=== PATIENT | female | born 1935 | race Caucasian/White ===

== ENCOUNTER 2020-09-03 15:40 | Inpatient (IN) | payer MEDICARE ==
[2020-09-03 19:16] LABS: BILIRUBIN NEGATIVE (NEGATIVE); BLOOD NEGATIVE Ery/uL (NEGATIVE); CLARITY CLEAR (CLEAR); COLOR YELLOW (YELLOW); GLUCOSE (U) NORMAL (NORMAL); LEUKOCYTES NEGATIVE Leu/uL (NEGATIVE); NITRITE NEGATIVE (NEGATIVE); PROTEIN NEGATIVE (NEGATIVE); UROBILINOGEN 0.2 mg/dL (0.2-1.0); pH 6.5 (5.0-9.0)
[2020-09-03 19:46] LABS: BASOPHIL 0.8 % (0-2); EOSINOPHIL 1.2 % (0-7); HCT 29.2 % (37.0-47.0); LYMPHOCYTE 33.4 % (15-48); MCH 29.7 pg (25.0-31.0); MCHC 30.8 g/dL (32.0-36.0); MCV 96.4 fL (78.0-100.0); MONOCYTE 9.9 % (0-12); NEUTROPHIL 54.2 % (41-80); NRBC 0; PLT 316 K/uL (150-400); RBC 3.03 M/uL (4.20-5.40); WBC 7.5 K/uL (4.0-10.5)
[2020-09-03 20:14] LABS: LACTIC ACID 0.9 mmol/L (0.4-1.9)
[2020-09-03 20:16] LABS: ALBUMIN 2.4 g/dL (3.4-5.0); BILIRUBIN - TOTAL 0.4 mg/dL (0.2-1.0); BUN/CREAT RATIO (CALC) 17.5 RATIO; CREATININE 1.14 mg/dL (0.51-0.95); GLOBULIN (CALCULATION) 3.2 g/dL; POTASSIUM 3.9 mmol/L (3.5-5.1); TOTAL PROTEIN 5.6 g/dL (6.4-8.2)
--- NOTE | 2020-09-04 00:15 | NUR ---
PATIENT ARRIVED TO FLOOR FROM ER. ALERT TO SELF. SON AT BEDSIDE.
[2020-09-04] MEDS ORDERED: ZOLOFT50 MG PO (00:27)
[2020-09-04] MEDS ORDERED: HYDRALAZINE25 MG PO (00:29)
[2020-09-04] MEDS ORDERED: SINGULAIR10 MG PO (00:30)
[2020-09-04] MEDS ORDERED: CALCIUM 600 +1 EA10 PO (00:32)
[2020-09-04] MEDS ORDERED: ARICEPT 5MG TABL5 MG PO (00:33)
[2020-09-04] MEDS ORDERED: CARDIZEM CD120 MG PO (00:34)
[2020-09-04] MEDS ORDERED: LASIX40 MG PO (00:34)
[2020-09-04] MEDS ORDERED: SYNTHROID50 MCG PO (00:35)
[2020-09-04] MEDS ORDERED: DETROL LA4 MG PO (00:36)
[2020-09-04] MEDS ORDERED: MAG-OXIDE 400M400 MG PO (00:37)
[2020-09-04] MEDS ORDERED: ZOCOR 20MG TABL20 MG PO (00:37)
[2020-09-04] MEDS ORDERED: UROCIT-K10 MEQ PO (00:38)
[2020-09-04] MEDS ORDERED: LOPRESSOR50 MG PO (00:38)
[2020-09-04] MEDS ORDERED: PRINIVIL20 MG PO (00:39)
[2020-09-04] MEDS ORDERED: ELIQUIS2.5 MG PO (00:39)
[2020-09-04] MEDS ORDERED: IMIPRAMINE HCL25 MG PO (00:41)
[2020-09-04] MEDS ORDERED: ATIVAN0.5 MG PO (00:42)
[2020-09-04] MEDS ORDERED: VITAMIN D250 MCG PO (00:44)
[2020-09-04] MEDS ORDERED: FOSAMAX70 MG PO (00:46)
[2020-09-04 06:26] LABS: AMPHETAMINES NEGATIVE (NEGATIVE); BARBITURATES NEGATIVE (NEGATIVE); ECSTASY (MDMA) NEGATIVE (NEGATIVE); MARIJUANA (THC) NEGATIVE (NEGATIVE); METHADONE NEGATIVE (NEGATIVE); OPIATES NEGATIVE (NEGATIVE); OXYCODONE NEGATIVE (NEGATIVE)
[2020-09-04 06:28] LABS: BASOPHIL 0.7 % (0-2); EOSINOPHIL 0.3 % (0-7); HCT 30.1 % (37.0-47.0); HGB 9.2 g/dl (12.5-16.0); LYMPHOCYTE 28.2 % (15-48); MCH 30.3 pg (25.0-31.0); MCHC 30.6 g/dL (32.0-36.0); MONOCYTE 7.5 % (0-12); MPV 9.1 fL (6.0-9.5); NEUTROPHIL 62.2 % (41-80); PLT 350 K/uL (150-400); RBC 3.04 M/uL (4.20-5.40); WBC 7.2 K/uL (4.0-10.5)
[2020-09-04 06:41] LABS: IRON % SATURATION 16.4 %SAT (20-50)
[2020-09-04 06:47] LABS: ALBUMIN 2.5 g/dL (3.4-5.0); BAND 2 % (0-10); BILIRUBIN - TOTAL 0.5 mg/dL (0.2-1.0); BUN/CREAT RATIO (CALC) 18.7 RATIO; CREATININE 1.07 mg/dL (0.51-0.95); GLOBULIN (CALCULATION) 3.2 g/dL; LYMPHOCYTE(M) 15 % (15-48); MONOCYTE(M) 4 % (0-12); NEUTROPHILS(M) 79 % (41-80); POTASSIUM 4.2 mmol/L (3.5-5.1); TOTAL CELL COUNT 100; TOTAL PROTEIN 5.7 g/dL (6.4-8.2)
[2020-09-04 06:48] LABS: NRBC 0; PLATELET ESTIMATE NORMAL; PLATELET MORPHOLOGY NORMAL
--- NOTE | 2020-09-04 12:56 | NUR ---
WAS COMPLETING LEADER ROUNDS, WAS CONCERNED ABOUT PATIENTS METAL STATUS, PATIENT WAS FIXATED, WOULD NOT RESPOND VERBALLY, WOULD NOT FOLLOW ANY COMMANDS, HAD "FOAM/DROOL" COMING FROM MOUTH. I SPOKE WITH DR VANG IN PERSON, HE CAME TO THE BEDSIDE. REPORTED THAT PATIENT HAD SHOWN SLIGHT DECLINE FROM EARLIER IN THE SHIFT. REPORTED TO GRACE, PRIMARY RN. GRACE REPORTED THAT PATIENT HAD NOT RESPONDED VERBALLY TO HER ALL SHIFT. DR VANG ORDERED MRI PREVIOUSLY, I ASKED HIM IF HE WANTED PATIENT TO GO TO MRI, HE SAID YES AND REPORTED TO PUT PATIENT ON TELEMETRY. PATIENTS VITAL SIGNS PRIOR TO LEAVING THE FLOOR WERE: BP 183/98, HR 114, O2 99%, RR 22, TEMP 102.3. DR VANG AWARE OF VITALS. I AM GOING TO TRAVEL TO MRI WITH PATIENT FOR MONITORING.
--- NOTE | 2020-09-04 13:00 | NUR ---
PATIENT IN MRI AT 1244. VITALS AT 1250 BP 190/91, HR 115, O2 100% ON 2L NC. PATIENT TOLERATING WELL AT THIS TIME. PATIENT ON CONTINOUS MONITORING. MRI COMPLETED AT 1302
--- NOTE | 2020-09-04 14:13 | NUR ---
UPON ENTERING ROOM THIS AM FOR 1ST ASSESSMENT PATIENT HAD A BEDSIDE SITTER, PATIENT WAS STARING TO THE RIGHT, NOT RESPONSIVE, UPON STERNAL RUB PATIENT WOULD MOAN, IN REPORT FROM NIGHT RN THIS STATUS CHANGE HAPPENED AROUND 0400, MD WAS NOTIFIED, DAY SHIFT MD IS AWARE. PATIENT HAD BEEN FOAMING FROM MOUTH, SHAKING. VITALS AT THAT TIME WERE STABLE. ORDERED MRI, THIS NURSE CALLED STEP SON TO OBTAIN HISTORY FOR MRI SHEET. CERAMIC RESEARCH ENGINEER STATED SHE HAD TAKEN BLOOD PRESSURE TWICE AND BLOOD PRESSURE WAS LOW 88/42, BOLUS WAS ORDERED LR 1000 ML AT 999ML/HR. BEFORE TRANSFERING DOWN FOR MRI THIS NURSE TOOK VITALS, B/P WAS 183/98, HEART RATE 114, TEMP 102.3, MD WAS NOTIFIED AND THERMOSCREW OPERATOR WENT WITH PATIENT TO MRI TO MONITOR. MD TRANSFERED PATIENT TO ICU FROM [facility].
--- NOTE | 2020-09-04 14:47 | NUR ---
ORDERED FOR PATIENT TO HAVE LUMBAR PUNCTURE WHILE PATIENT WAS IN MRI. PATIENT WAS TAKEN FROM MRI TO TREATMENT ROOM IN RADIOLOGY. PATIENT WAS MONITORED WHILE LP PROCEDURE TOOK PLACE. LP PROCEDURE BEGAN AROUND 1308, DR MEJÍA WAS NOT SUCCESSFUL AFTER MULTIPLE ATTEMPTS TO OBTAIN LP FLUID FOR SPECIMEN. PATIENT TOLERATED PROCEDURE WELL. VITALS DURING PROCEDURE: HR 130, O2 ON 2L NC 97%. VITALS POST PROCEDURE (COMPLETED AT 1350) HR 134, O2 99% ON 2L NC. PATIENT WAS PRONED PRIOR TO PROCEDURE. PATIENT TOLERATED WELL. SECRETIONS SUCTIONED INTERMITTENTLY THROUGHOUT PROCEDURE. DR VANG TO ROOM DURING PROCEDURE TO ASSESS PATIENT. PRONE PILLOW USED DURING PROCEDURE FOR HEAD SUPPORT. POST PROCEDURE PATIENT TRANSFERRED TO ICU. #20GAU IV STARTED IN LEFT AC, AND #18GAU IV STARTED IN RIGHT AC. ALREADY ESTABLISHED #22GAU IV LOCATED IN LEFT UPPER FOREARM. PATIENTS CARE TRANSITIONED TO JAGDISH WHITMAN.
[2020-09-04 16:24] LABS: INR 1.61 (0.9-1.2); PROTHROMBIN TIME 18.2 SECONDS (11.4-13.6)
[2020-09-04 16:40] LABS: C-REACTIVE PROTEIN 4.7 mg/dL (<=0.90); MAGNESIUM 1.9 mg/dL (1.8-2.4)
== END 2020-09-05 03:55 | disposition other institution (70) | DRG 871 ==
LOC: FER 15:40 → FMS 22:13 → FICU 09-04 13:02
PROVIDERS: Allergy & Immunology Allergy; Emergency Medicine; Nurse Practitioner; ADMIT Internal Medicine
PROC: 00JU3ZZ Inspection of Spinal Canal, Percutaneous Approach (ICD-10-PCS; principal; 2020-09-04)
DX: A41.9 Sepsis, unspecified organism (principal); G92 Toxic encephalopathy; J18.9 Pneumonia, unspecified organism; L89.313 Pressure ulcer of right buttock, stage 3; I21.4 Non-ST elevation (NSTEMI) myocardial infarction; J90 Pleural effusion, not elsewhere classified; I38 Endocarditis, valve unspecified; E03.9 Hypothyroidism, unspecified; S22.41XD Multiple fractures of ribs, right side, subsequent encounter for fracture with routine healing; W06.XXXD Fall from bed, subsequent encounter; S90.02XD Contusion of left ankle, subsequent encounter; I48.91 Unspecified atrial fibrillation; F41.9 Anxiety disorder, unspecified; E11.9 Type 2 diabetes mellitus without complications; R32 Unspecified urinary incontinence; D50.9 Iron deficiency anemia, unspecified; L89.151 Pressure ulcer of sacral region, stage 1; L89.221 Pressure ulcer of left hip, stage 1; Z20.822 Contact with and (suspected) exposure to COVID-19; K59.00 Constipation, unspecified; M19.90 Unspecified osteoarthritis, unspecified site; Z90.11 Acquired absence of right breast and nipple; Z85.3 Personal history of malignant neoplasm of breast; Z79.899 Other long term (current) drug therapy; Z79.01 Long term (current) use of anticoagulants; G83.84 Todd's paralysis (postepileptic); R56.9 Unspecified convulsions
CPT/HCPCS: 36415; 36600; 70450; 70551; 71045; 71250; 73630; 74018; 80053; 80305; 81003; 82803; 83540; 83550; 83605; 83735; 83880; 84439; 84443; 84484; 85025; 85610; 86140; 87040; 93005; 94640; J1650; J1953; J2060; J2185; J2543; J7050; J7120; U0002